=== PATIENT | female | born 1990 | race American Indian/Alaskan Native ===

== ENCOUNTER 2018-10-08 04:06 | Emergency (ER) | payer SELFPAY ==
[2018-10-08 04:13] VITALS: BP 123/77
--- NOTE | 2018-10-08 04:46 | XRay Report ---
CHEST 1 VIEW 4:41 AM INDICATION / CLINICAL INFORMATION: Chest Pain. COMPARISON: None available. FINDINGS: SUPPORT DEVICES: None. HEART / MEDIASTINUM: The heart size and pulmonary vasculature are normal. The aorta is normal in melani emiliana. LUNGS / PLEURA: No significant pulmonary or pleural abnormality. No pneumothorax. ADDITIONAL FINDINGS: No significant additional findings. IMPRESSION: No acute findings. Signer Name: Kishor Kaur MD Signed: 10/08/2018 4:42 AM Workstation Name: [id number]
[2018-10-08] MEDS ORDERED: TORADOL IM ONE (05:16)
[2018-10-08] MEDS ORDERED: ZANAFLEX PO ONE (05:16)
--- NOTE | 2018-10-08 05:16 | Emergency Department Report ---
ED Back Pain/Injury HPI - General Chief Complaint: Back Pain/Injury Stated Complaint: PULL ON LEFT SIDE, HURST WHEN EXHALING. COUGH Time Seen by Provider: 10/08/18 05:03 Source: patient Limitations: No Limitations - History of Present Illness Initial Comments: 28-year-old -[place] female presents to the emergency room for pain to her left mid back for 2 weeks. Patient reports that it has gotten worse tonight. Patient reports it feels like his pulling sensation when she takes a deep breath or move. Patient complains of a productive cough. Patient denies any injuries to her back. Patient has no past medical history surgical history of a 2 tubal ligation and cyst removal from the right hand 2. 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 MD Complaint: back pain Onset/Timin -: week(s) Severity scale (0 -10): 10 Quality: sharp, aching Consistency: constant Improves With: none Context: turning/twisting, bending Associated Symptoms: cough. denies: confusion, weakness, chest pain, numbness, difficulty walking, difficulty urinating, diaphoresis, incontinence, fever/chills, constipation, headaches, abdominal pain, loss of appetite, malaise, nausea/vomiting, rash, seizure, shortness of breath, syncope - Related Data Previous Rx's Medication Instructions Recorded Last Taken Type Naproxen [Naprosyn] 500 mg PO BID PRN #20 tablet 10/08/18 Unknown Rx tiZANidine [Zanaflex 4mg TAB] 4 mg PO TID PRN #15 tablet 10/08/18 Unknown Rx Allergies Allergy/AdvReac Type Severity Reaction Status Date / Time No Known Allergies Allergy Verified 10/08/18 04:12 ED Review of Systems ROS: Stated complaint: PULL ON LEFT SIDE, HURST WHEN EXHALING. COUGH Other details as noted in HPI Comment: All other systems reviewed and negative Respiratory: cough Musculoskeletal: back pain ED Past Medical Hx - Past Medical History Previous Medical History?: No - Surgical History Past Surgical History?: Yes Additional Surgical History: x2. Cyst removed from right hand x2. tubal ligation - Social History Smoking Status: Current Every Day Smoker Substance Use Type: None - Medications Home Medications: Home Medications Medication Instructions Recorded Confirmed Last Taken Type Naproxen [Naprosyn] 500 mg PO BID PRN #20 tablet 10/08/18 Unknown Rx tiZANidine [Zanaflex 4mg TAB] 4 mg PO TID PRN #15 tablet 10/08/18 Unknown Rx ED Physical Exam - General Limitations: No Limitations General appearance: alert, in no apparent distress - Head Head exam: Present: atraumatic, normocephalic - Eye Eye exam: Present: normal appearance - ENT ENT exam: Present: mucous membranes moist - Neck Neck exam: Present: normal inspection, full ROM - Cardiovascular Cardiovascular Exam: Present: tachycardia - GI/Abdominal GI/Abdominal exam: Present: soft, normal bowel sounds - Extremities Exam Extremities exam: Present: full ROM - Back Exam Back exam: Present: full ROM, tenderness, muscle spasm, paraspinal tenderness (left) - Neurological Exam Neurological exam: Present: alert, oriented X3, normal gait - Psychiatric Psychiatric exam: Present: normal affect, normal mood - Skin Skin exam: Present: warm, dry, intact, normal color. Absent: rash ED Course Vital Signs 10/08/18 04:11 Temperature 98.5 F Pulse Rate 102 H Respiratory 18 Rate Blood Pressure 123/77 O2 Sat by Pulse 100 Oximetry - Reevaluation(s) Reevaluation #1: 10/08/18 06:28 Provider recheck patient's pulse ox and heart rate was 99% on room air heart rate 86 bpm. ED Medical Decision Making - Lab Data Lab Results 10/08/18 Range/Units 05:22 Urine Color Yellow (Yellow) Urine Turbidity Slightly-cloudy (Clear) Urine pH 5.0 (5.0-7.0) Ur Specific [place] 1.024 (1.003-1.030) Urine Protein <15 mg/dl (Negative) mg/dL Urine Glucose (UA) Neg (Negative) mg/dL Urine Ketones Neg (Negative) mg/dL Urine Blood Mod (Negative) Urine Nitrite Neg (Negative) Urine Bilirubin Neg (Negative) Urine Urobilinogen 2.0 (<2.0) mg/dL Ur Leukocyte Esterase Tr (Negative) Urine WBC (Auto) 3.0 (0.0-6.0) /HPF Urine RBC (Auto) 2.0 (0.0-6.0) /HPF U Epithel Cells (Auto) 4.0 (0-13.0) /HPF Urine Bacteria (Auto) 1+ (Negative) /HPF Urine Mucus 3+ /HPF - Radiology Data Radiology results: report reviewed Ordering Physician: JUAN MIGUEL GARRISON Date of Service: 10/08/18 Procedure(s): XR chest 1V ap Accession Number(s): [id number] cc: JUAN MIGUEL GARRISON Fluoro Time In Minutes: CHEST 1 VIEW 4:41 AM INDICATION / CLINICAL INFORMATION: Chest Pain. COMPARISON: None available. FINDINGS: SUPPORT DEVICES: None. HEART / MEDIASTINUM: The heart size and pulmonary vasculature are normal. The aorta is normal in caliber. LUNGS / PLEURA: No significant pulmonary or pleural abnormality. No pneumothorax. ADDITIONAL FINDINGS: No significant additional findings. IMPRESSION: No acute findings. Signer Name: Kishor Kaur MD Signed: 10/08/2018 4:42 AM Workstation Name: [id number] Transcribed By: RT Dictated By: Kishor Kaur MD Electronically Authenticated By: Kishor Kaur MD Signed Date/Time: 10/08/18441 DD/ 0 TD/TT: - Medical Decision Making 28-year-old -[place] female presents to the emergency room for pain to her left mid back for 2 weeks. Patient reports that it has gotten worse tonight. Patient reports it feels like his pulling sensation when she takes a deep breath or move. Patient complains of a productive cough. Patient denies any injuries to her back. Patient has no past medical history surgical history of a 2 tubal ligation and cyst removal from the right hand 2. 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 Chest x-ray is normal. Patient will be given a Toradol injection with Zanaflex 4 mg. Urinalysis sent. Urinalysis is negative for any acute infection. We will send patient home on naproxen and Zanaflex and to rest. Most likely this is a muscle strain. She is to reevaluate by her primary care provider. He was discussed with Dr. Manzanares. Patient has a low risk of a PE since she has not traveled distant, no cancer and currently on no control she has a tubal ligation. Critical care attestation.: If time is entered above; I have spent that time in minutes in the direct care of this critically ill patient, excluding procedure time. ED Disposition Clinical Impression: Strain of muscle at thorax level Disposition: - TO HOME OR SELFCARE Is pt being admited?: No Does the pt Need Aspirin: No Condition: Stable Instructions: Muscle Strain (ED) Additional Instructions: Please take pain medication and muscle relaxant as needed. Please allow yourself to rest. I highly recommend free to be reevaluated by her primary care provider in the next 2-3 days. Prescriptions: Naproxen [Naprosyn] 500 mg PO BID PRN #20 tablet PRN Reason: Pain , Severe (7-10) tiZANidine [Zanaflex 4mg TAB] 4 mg PO TID PRN #15 tablet PRN Reason: Muscle Spasm Referrals: LEIGHTON REARDON MD [Primary Care Provider] - 3-5 Days Forms: Work/School Release Form(ED)
[2018-10-08 05:39] LABS: Bacteria,Urine 1+ /HPF (Negative); Bilirubin,Urine NEG (Negative); Blood,Urine MOD (Negative); Color,Urine Yellow (Yellow); Mucus,Urine 3+ /HPF; Protein,Urine <15 mg/dL mg/dL (Negative)
== END 2018-10-08 06:47 | disposition home or self-care (01) ==
LOC: ED 04:06
DX: S29.012A Strain of muscle and tendon of back wall of thorax, initial encounter (principal); F17.200 Nicotine dependence, unspecified, uncomplicated; Z98.51 Tubal ligation status; X58.XXXA Exposure to other specified factors, initial encounter; Y93.89 Activity, other specified; Y92.89 Other specified places as the place of occurrence of the external cause; Y99.8 Other external cause status
CPT/HCPCS: 71045; 81001; 96372; 99284; J1885

== ENCOUNTER 2019-02-01 06:24 | Emergency (ER) | payer BC ==
[2019-02-01 06:34] VITALS: BP 128/70
[2019-02-01 07:58] LABS: Basophils # (Auto) 0.1 K/mm3 (0.0-0.1); Basophils % (Auto) 1.5 % (0.0-1.8); Eosinophils # (Auto) 0.3 K/mm3 (0.0-0.4); Eosinophils % (Auto) 4.5 % (0.0-4.3); Hematocrit 34.6 % (30.3-42.9); Lymphocytes # (Auto) 1.9 K/mm3 (1.2-5.4); Lymphocytes % (Auto) 29.9 % (13.4-35.0); Mean Corpuscular HGB Conc 32 % (30-34); Mean Corpuscular Volume 71 fl (79-97); Monocytes # (Auto) 0.5 K/mm3 (0.0-0.8); Monocytes % (Auto) 7.8 % (0.0-7.3); Platelet Count 313 K/mm3 (140-440); Red Blood Count 4.89 M/mm3 (3.65-5.03); Red Cell Distribution Width 18.5 % (13.2-15.2)
[2019-02-01] MEDS ORDERED: SODIUM CHLORIDE 0.9% 1000 ML 1,000 ML IV ONE (08:08)
[2019-02-01] MEDS ORDERED: MORPHINE 4 MG/1 ML INJ IV ONE (08:08)
[2019-02-01] MEDS ORDERED: ONDANSETRON 4 MG/2 ML INJ IV ONE (08:08)
--- NOTE | 2019-02-01 08:11 | Emergency Department Report ---
ED Back Pain/Injury HPI - General Chief Complaint: Back Pain/Injury Stated Complaint: LEG PAIN HARD TO WALK Time Seen by Provider: 02/01/19 07:17 Source: patient Limitations: No Limitations - History of Present Illness Initial Comments: This is a 28-year-old female nontoxic, well nourished in appearance, no acute signs of distress presents to the ED with c/o of acute on chronic lower back pain. History of sciatica pain since 2006. Patient stated this is worsening symptoms since 2 weeks ago and now has difficulty walking and bladder instability. Stated that as soon as she gets up due to the pain she urinates on self. Patient states that pain radiates through to his right lower extremity. Patient denies any trauma. Denies any bladder or bowel instability. Patient d enies any urinary symptoms. Denies any fever, chills, nausea, vomiting, headache, stiff neck, chest pain or shortness of breath. Denies any allergies. Denies significant past medical history. MD Complaint: back pain -: week(s) (2) Similar Symptoms Previously: Yes Radiation: right leg Severity: mild Severity scale (0 -10): 8 Quality: aching Consistency: constant Improves With: immobilization, sitting upright Worsens With: movement, walking Context: while lifting, turning/twisting Associated Symptoms: difficulty walking, incontinence (urinary only). denies: confusion, weakness, chest pain, numbness, cough, difficulty urinating, diaphoresis, fever/chills, constipation, headaches, abdominal pain, loss of appetite, malaise, nausea/vomiting, rash, seizure, shortness of breath, syncope - Related Data Previous Rx's Medication Instructions Recorded Last Taken Type Naproxen [Naprosyn] 500 mg PO BID PRN #20 tablet 10/08/18 Unknown Rx tiZANidine [Zanaflex 4mg TAB] 4 mg PO TID PRN #15 tablet 10/08/18 Unknown Rx Cyclobenzaprine [Flexeril] 10 mg PO QHS PRN #10 tablet 02/01/19 Unknown Rx Naproxen 500 mg PO Q12H PRN #20 tablet 02/01/19 Unknown Rx Sulfamethoxazole/Trimethoprim 1 each PO BID #14 tablet 02/01/19 Unknown Rx [Bactrim DS TAB] Allergies Allergy/AdvReac Type Severity Reaction Status Date / Time No Known Allergies Allergy Verified 10/08/18 04:12 ED Review of Systems ROS: Stated complaint: LEG PAIN HARD TO WALK Other details as noted in HPI Constitutional: denies: chills, fever Eyes: denies: eye pain, eye discharge, vision change ENT: denies: ear pain, throat pain Respiratory: denies: cough, shortness of breath, wheezing Cardiovascular: denies: chest pain, palpitations Endocrine: no symptoms reported Gastrointestinal: denies: abdominal pain, nausea, diarrhea Genitourinary: denies: urgency, dysuria, discharge Musculoskeletal: back pain. denies: joint swelling, arthralgia Skin: denies: rash, lesions Neurological: denies: headache, weakness, paresthesias Psychiatric: denies: anxiety, depression Hematological/Lymphatic: denies: easy bleeding, easy bruising ED Past Medical Hx - Past Medical History Previous Medical History?: Yes Additional medical history: Sciatica - Surgical History Past Surgical History?: Yes Additional Surgical History: x2. Cyst removed from right hand x2. tubal ligation - Social History Smoking Status: Never Smoker Substance Use Type: None - Medications Home Medications: Home Medications Medication Instructions Recorded Confirmed Last Taken Type Naproxen [Naprosyn] 500 mg PO BID PRN #20 tablet 10/08/18 Unknown Rx tiZANidine [Zanaflex 4mg TAB] 4 mg PO TID PRN #15 tablet 10/08/18 Unknown Rx Cyclobenzaprine [Flexeril] 10 mg PO QHS PRN #10 tablet 02/01/19 Unknown Rx Naproxen 500 mg PO Q12H PRN #20 tablet 02/01/19 Unknown Rx Sulfamethoxazole/Trimethoprim 1 each PO BID #14 tablet 02/01/19 Unknown Rx [Bactrim DS TAB] ED Physical Exam - General Limitations: No Limitations General appearance: alert, in no apparent distress - Head Head exam: Present: atraumatic, normocephalic - Neck Neck exam: Present: normal inspection, full ROM. Absent: tenderness, meningismus, lymphadenopathy - Respiratory Respiratory exam: Present: normal lung sounds bilaterally. Absent: respiratory distress, wheezes, rales, rhonchi, stridor, chest wall tenderness, accessory muscle use, decreased breath sounds, prolonged expiratory - Cardiovascular Cardiovascular Exam: Present: regular rate, normal rhythm, normal heart sounds. Absent: bradycardia, tachycardia, irregular rhythm, systolic murmur, diastolic murmur, rubs, gallop - GI/Abdominal GI/Abdominal exam: Present: soft, normal bowel sounds. Absent: distended, tenderness - Extremities Exam Extremities exam: Present: normal inspection, full ROM, normal capillary refill. Absent: tenderness, joint swelling, calf tenderness - Back Exam Back exam: Present: tenderness, paraspinal tenderness (lumbar area), vertebral tenderness (lumbar area). Absent: CVA tenderness (R), CVA tenderness (L), muscle spasm, rash noted - Expanded Back Exam Expanded Back exam: Absent: saddle anesthesia Back exam: Sciatic Notch Tenderness: Right - Neurological Exam Neurological exam: Present: alert, oriented X3 - Psychiatric Psychiatric exam: Present: normal affect, normal mood - Skin Skin exam: Present: warm, dry, intact, normal color. Absent: rash ED Course Vital Signs 02/01/19 06:33 Temperature 98.6 F Pulse Rate 81 Respiratory 18 Rate Blood Pressure 128/70 O2 Sat by Pulse 95 Oximetry - Reevaluation(s) Reevaluation #1: 02/01/19 08:13 Patient is speaking in full sentences with no signs of distress noted. - Consultations Consultation #1: 02/01/19 08:13 Patient has been consulted with Jil Joe about patient history, physical exa m, and stated patient to get MRI w/o contrast for further evaluation and treatment. ED Medical Decision Making - Lab Data Result diagrams: 02/01/19 07:37 02/01/19 07:37 - Medical Decision Making This is a 28-year-old female that presents with low back strain. Patient is stable was examined by me. MRI w/o contrast has been obtained and dictated by the radiologist. Patient is notifeid of the xray with no questions noted by the patient. There is no cauda equina syndrome. No bladder or bowel instability. Patient received Morphine and Decadron in the ED which stated that her symptoms has resolved and subsided. Was consulted with Dr. Reynoso. Patient is discharged with muscle relaxant and Motrin. Patient was instructed not to operate any machinery while taking muscle relaxant as they cause her drowsiness. Patient was referred to Follow-up with a primary care doctor in 3-5 days or if symptoms worsen and continue return to emergency room as soon as possible. At time of discharge, the patient does not seem toxic or ill in appearance. No acute signs of distress noted. Patient agrees to discharge treatment plan of care. No further questions noted by the patient. This chart is dictated with using [employer] Dictation [employer] - Differential Diagnosis Cauda equina syndrome,stress incontinence,herniated disc,sciatica, spin dis Critical care attestation.: If time is entered above; I have spent that time in minutes in the direct care of this critically ill patient, excluding procedure time. ED Disposition Clinical Impression: UTI (urinary tract infection) Qualifiers: Urinary tract infection type: site unspecified Hematuria presence: without hematuria Qualified Code(s): N39.0 - Urinary tract infection, site not specified Sciatica Qualifiers: Laterality: unspecified laterality Qualified Code(s): M54.30 - Sciatica, unspecified side Radiculopathy Qualifiers: Spinal region: unspecified Qualified Code(s): M54.10 - Radiculopathy, site unspecified Low back strain Qualifiers: Encounter type: initial encounter Qualified Code(s): S39.012A - Strain of muscle, fascia and tendon of lower back, initial encounter Disposition: TO HOME OR SELFCARE Is pt being admited?: No Does the pt Need Aspirin: No Condition: Stable Instructions: Cyclobenzaprine (By mouth), Muscle Strain (ED), Lumbar Radiculopathy (ED) Additional Instructions: Follow-up with your primary care doctor in 3-5 days or if symptoms worsen such as bladder or bowel stability, chest pain, short of breath, numbness or tingling sensation in extremities, headache, dizziness, visual changes, nausea vomiting, or abdominal pain, return back to emergency room as was possible. Take naproxen and Flexeril as prescribed. Do not operate heavy machinery while taking Flexeril due to sedation Prescriptions: Cyclobenzaprine [Flexeril] 10 mg PO QHS PRN #10 tablet PRN Reason: Muscle Spasm Sulfamethoxazole/Trimethoprim [Bactrim DS TAB] 1 each PO BID #14 tablet Naproxen 500 mg PO Q12H PRN #20 tablet PRN Reason: Pain, Moderate (4-6) Referrals: PRIMARY CARE, [Primary Care Provider] - 3-5 Days WARD MENA MD [Staff Physician] - 3-5 Days LEIGHTON REARDON MD [Staff Physician] - 3-5 Days [facility] [Outside] - 3-5 Days Forms: Work/School Release Form(ED)
[2019-02-01 08:26] LABS: Alanine Aminotransferase 8 units/L (7-56); Albumin 4.3 g/dL (3.9-5); BUN/Creatinine Ratio 13; Blood Urea Nitrogen 9 mg/dL (7-17); Calcium 9.6 mg/dL (8.4-10.2); Hemolysis Index 30
[2019-02-01 08:32] LABS: Bilirubin,Direct < 0.2 mg/dL (0-0.2)
[2019-02-01 09:43] LABS: Bilirubin,Urine NEG (Negative); Blood,Urine NEG (Negative); Color,Urine Yellow (Yellow); Mucus,Urine FEW /HPF; Protein,Urine <15 mg/dL mg/dL (Negative); Urobilinogen,Urine < 2.0 mg/dL (<2.0)
--- NOTE | 2019-02-01 10:30 | Magnetic Resonance Report ---
MRI LUMBAR SPINE WITHOUT CONTRAST INDICATION / CLINICAL INFORMATION: lower back pain with bladder instability. TECHNIQUE: Multisequence, multiplanar images of the lumbar spine were obtained. COMPARISON: None available. FINDINGS: ALIGNMENT: Normal alignment is maintained throughout the lumbar region. VERTEBRAE:Normal bone marrow signal intensity is maintained throughout the lumbar region. DISC MORPHOLOGY:Disc height and disc signal intensity are normally maintained throughout the lumbar r egion. VISUALIZED SPINAL CORD: Distal thoracic spinal cord, conus and nerve roots of the cauda equina all guzman ve an unremarkable appearance. Conus terminates at about the level of [id number] ANALYSIS: L1-2: No significant abnormality. L2-3: No significant abnormality. L3-4: No significant abnormality. L4-5: No significant abnormality. L5-S1: There is a small joint effusion with potential synovial cyst extending inferiorly from the inf erior margin of the L5-S1 facet joints bilaterally. PARASPINAL SOFT TISSUES: Evaluation of the paraspinous soft tissues reveals no definite abnormalities . Sacrum and sacroiliac joints: There is a bone marrow edema signal intensity on the iliac side of the of the right sacroiliac joint. A smaller focus of abnormal bone marrow signal is seen on the sacral s jorden of the SI joint at the level of the S1 sacral ala. Possibility of sacroiliitis could be considere d. IMPRESSION: 1. L5-S1 facet arthropathy and possible right-sided sacroiliitis. 2. No indication of disc herniation, central canal stenosis or neuroforaminal encroachment. Signer Name: Beni Bolaños MD Signed: 02/01/2019 10:26 AM Workstation Name: [id number]
[2019-02-01] MEDS ORDERED: dexAMETHasone 20 MG/5 ML VIAL IV ONE (10:55)
== END 2019-02-01 12:44 | disposition home or self-care (01) ==
LOC: ED 06:24
DX: S39.012A Strain of muscle, fascia and tendon of lower back, initial encounter (principal); N39.0 Urinary tract infection, site not specified; M54.30 Sciatica, unspecified side; M54.10 Radiculopathy, site unspecified; X58.XXXA Exposure to other specified factors, initial encounter; Y93.89 Activity, other specified; Y92.89 Other specified places as the place of occurrence of the external cause; Y99.8 Other external cause status
CPT/HCPCS: 36415; 72148; 80048; 80076; 81001; 84703; 85025; 87086; 96374; 96375; 99284; J1100; J2270; J2405; J7030